=== PATIENT | male | born 1960 | race Two or more races ===

== ENCOUNTER 2021-04-18 11:56 | Inpatient (IN) | payer OTHER ==
[~2021-04-18] VITALS: Ht 175.3 cm; Wt 135.0 kg
[2021-04-18 12:51] LABS: GLUCOSE,POINT OF CARE 194 MG/DL (70-110)
[2021-04-18] MEDS ORDERED: SODIUM CHLORIDE 0.9% 1,000 ML IV ONE (14:30)
[2021-04-18 14:54] LABS: BASOPHILS % (AUTO) 0.4 % (0.0-2.0); EOSINOPHILS % (AUTO) 0 % (1.0-6.0); HEMATOCRIT 44.6 % (41-53); HEMOGLOBIN 15.2 g/dL (13.5-17.5); LYMPHOCYTES # (AUTO) 0.4 K/uL (1.0-4.8); LYMPHOCYTES % (AUTO) 6.2 % (22.0-44.0); MEAN CORPUSCULAR HEMOGLOBIN 33.3 pg (26.0-34.0); MEAN CORPUSCULAR HGB CONC 34.2 G/dL (31.0-37.0); MEAN CORPUSCULAR VOLUME 98 fL (80-100); MONOCYTES # (AUTO) 0.8 K/uL (0.1-1.0); MONOCYTES % (AUTO) 13.2 % (2.0-9.0); NEUTROPHILS # (AUTO) 4.8 K/uL (1.8-7.7); NEUTROPHILS % (AUTO) 80.2 % (40.0-70.0); PLATELET COUNT (AUTO) 75 K/uL (150-450); RED BLOOD CELL COUNT(AUTO) 4.57 MIL/uL (4.50-5.90); RED CELL DISTRIBUTION WIDTH 15.1 % (11.5-14.5)
[2021-04-18 15:02] LABS: APPEARANCE,URINE CLEAR (CLEAR); GLUCOSE, URINE (UA) NEGATIVE (NEGATIVE); KETONES,URINE >=80 mg/dL (NEGATIVE); LEUKOCYTE ESTERASE ,URINE SMALL (NEGATIVE); NITRATE,URINE POSITIVE (NEGATIVE); OCCULT BLOOD,URINE MODERATE (NEGATIVE); PROTEIN,URINE SEE CONFIRM (NEGATIVE)
[2021-04-18 15:06] LABS: AMPHET/METH SCREEN,URINE NEGATIVE (NEGATIVE); BARBITURATE SCREEN, URINE NEGATIVE (NEGATIVE); BENZODIAZEPINES SCREEN,URINE NEGATIVE (NEGATIVE); BILIRUBIN,URINE PRELIM. POSITIVE (NEGATIVE); CANNABINOID SCREEN,URINE NEGATIVE (NEGATIVE); COCAINE SCREEN,URINE NEGATIVE (NEGATIVE); METHADONE SCREEN, URINE NEGATIVE (NEGATIVE); OPIATE SCREEN,URINE NEGATIVE (NEGATIVE)
[2021-04-18 15:07] LABS: PHENCYCLIDINE SCREEN,URINE NEGATIVE (NEGATIVE)
[2021-04-18 15:07] LABS: ANION GAP 15 mmol/L (8-16); CALCIUM, TOTAL 9.4 mg/dL (8.8-10.5); CARBON DIOXIDE 28 mmol/L (22-29); CHLORIDE 96 mmol/L (98-107); CREATININE 1.06 mg/dL (0.60-1.30); GLOMERULAR FILTR. RATE CALC > 60 mL/min (>60); GLUCOSE,RANDOM 107 mg/dL (70-110); POTASSIUM 3.2 mmol/L (3.5-5.1); SODIUM SERUM 139 mmol/L (136-145); UREA NITROGEN, BLOOD 8 mg/dL (7-18)
[2021-04-18 15:10] LABS: INR 1.1 (0.9-1.1); PROTHROMBIN TIME 11.6 SEC (9.4-11.6)
[2021-04-18 15:14] LABS: COVID AG,FIA SOURCE NASOPHARYNGEAL
[2021-04-18 15:18] LABS: AMMONIA 19 umol/L (11-32)
[2021-04-18 15:19] LABS: TROPONIN I < 0.02 ng/mL (0.00-0.05)
[2021-04-18 15:30] LABS: ALANINE AMINOTRANSFERASE 37 U/L (12-78); ALBUMIN 3.9 g/dL (3.4-5.0); ALKALINE PHOSPHATASE 72 U/L (46-116); ASPARTATE AMINOTRANSFERASE 78 U/L (15-37); BILIRUBIN,TOTAL 1.5 mg/dL (0.1-1.0); CREATINE KINASE, TOTAL ONLY 161 U/L (39-308); TOTAL PROTEIN, SERUM 8.7 g/dL (6.4-8.2)
[2021-04-18 15:36] LABS: MAGNESIUM 1.9 mg/dL (1.80-2.40)
[2021-04-18 15:55] LABS: BACTERIA,URINE Few /HPF (None Seen); SQUAMOUS EPITHELIAL CELL,UR Rare /LPF (None Seen); WBC,URINE 0-2 /HPF (0-5)
[2021-04-18 15:56] LABS: HYALINE CASTS, URINE 0-2 /LPF (None Seen)
[2021-04-18 15:57] LABS: SULFOSALICYLIC ACID,URINE 3+ (Negative)
[2021-04-18] MEDS ORDERED: POTASSIUM CHLORIDE 20 MEQ ER TABLET PO ONE (17:15)
[2021-04-18] MEDS ORDERED: LORazepam 1 MG TABLET PO ONE (17:15)
[2021-04-18 17:41] VITALS: BP 144/90
[2021-04-18] MEDS ORDERED: MAGNESIUM SULFATE 2 GM/WATER 50 ML IV PRN (18:30)
[2021-04-18] MEDS ORDERED: ONDANSETRON HCL 4 MG/2 ML VIAL IVP PRN (18:30)
[2021-04-18] MEDS ORDERED: MAGNESIUM OXIDE 400 MG TABLET PO PRN (18:30)
[2021-04-18] MEDS ORDERED: MAGNESIUM HYDROXIDE SUSPENSION 30 ML UDCUP PO PRN (18:30)
[2021-04-18] MEDS ORDERED: MAGNESIUM SULFATE 4 GM/WATER 100 ML IV PRN (18:30)
[2021-04-18] MEDS ORDERED: POTASSIUM CHL 10 MEQ/WATER 50 ML IV PRN (18:30)
[2021-04-18] MEDS ORDERED: POTASSIUM CHLORIDE 20 MEQ ER TABLET PO PRN (18:30)
[2021-04-18] MEDS: SODIUM CHLORIDE 0.9% 1,000 ML IV SCH (18:50)
[2021-04-18 19:19] VITALS: BP 151/92
[2021-04-18 20:51] LABS: ALBUMIN 4.2 g/dL (3.4-5.0)
[2021-04-18] MEDS: ACETAMINOPHEN 325 MG TABLET PO PRN (22:47)
[2021-04-18 23:02] VITALS: BP 139/92
[2021-04-18] MEDS: HEPARIN SODIUM,PORCINE 5,000 UNITS/ML VIAL SQ SCH (23:35)
[2021-04-19 04:11] VITALS: BP_SYST 130
[2021-04-19] MEDS: SODIUM CHLORIDE 0.9% 1,000 ML IV SCH (04:56)
[2021-04-19 07:05] LABS: MAGNESIUM 1.8 mg/dL (1.80-2.40); POTASSIUM 3.7 mmol/L (3.5-5.1)
[2021-04-19 07:46] VITALS: BP 142/94
[2021-04-19] MEDS: MULTIVITAMINS WITH MINERALS, THERAPEUTIC TABLET PO SCH (08:42)
[2021-04-19] MEDS: FAMOTIDINE 20 MG TABLET PO SCH (08:42)
[2021-04-19] MEDS: HEPARIN SODIUM,PORCINE 5,000 UNITS/ML VIAL SQ SCH ×2 (08:43→15:34)
[2021-04-19 10:38] VITALS: BP 144/91
[2021-04-19 15:31] VITALS: BP 135/87
[2021-04-19 19:38] VITALS: BP 143/91
[2021-04-19] MEDS: ACETAMINOPHEN 325 MG TABLET PO PRN (21:08)
[2021-04-19 23:58] VITALS: BP 140/88
[2021-04-20 04:40] VITALS: BP 144/99
[2021-04-20] MEDS: HEPARIN SODIUM,PORCINE 5,000 UNITS/ML VIAL SQ SCH ×2 (07:57)
[2021-04-20 07:59] VITALS: BP 152/91
[2021-04-20] MEDS: ACETAMINOPHEN 325 MG TABLET PO PRN (08:02)
[2021-04-20] MEDS: MULTIVITAMINS WITH MINERALS, THERAPEUTIC TABLET PO SCH (08:02)
[2021-04-20] MEDS: FAMOTIDINE 20 MG TABLET PO SCH (08:02)
[2021-04-20 11:19] VITALS: BP 148/93
== END 2021-04-20 13:00 | disposition home or self-care (01) | DRG 641 ==
LOC: EMS 11:59 → 5S 17:07
PROVIDERS: ADMIT Internal Medicine; ATTEND Internal Medicine
DX: E86.0 Dehydration (principal); E44.0 Moderate protein-calorie malnutrition; F10.139 Alcohol abuse with withdrawal, unspecified; Z68.41 Body mass index [BMI] 40.0-44.9, adult; E66.01 Morbid (severe) obesity due to excess calories; E83.42 Hypomagnesemia; E87.6 Hypokalemia; I10 Essential (primary) hypertension; F32.9 Major depressive disorder, single episode, unspecified; Z20.822 Contact with and (suspected) exposure to COVID-19; Z59.0 Homelessness; Z86.73 Personal history of transient ischemic attack (TIA), and cerebral infarction without residual deficits; Z79.899 Other long term (current) drug therapy
CPT/HCPCS: 70450; 71045; 80053; 81001; 81002; 82040; 82140; 82550; 82962; 83735; 84132; 84484; 85025; 85610; 93005; 97116; 97161; 97530; 99285; G0480; J1644; J7030; 36415-L1; 36415-TC

== ENCOUNTER 2021-07-04 17:36 | Emergency (ER) | payer OTHER ==
[~2021-07-04] VITALS: Ht 170.2 cm; Wt 137.0 kg
[2021-07-04] MEDS ORDERED: IVERMECTIN 3 MG TABLET PO ONE (18:45)
[2021-07-04] MEDS ORDERED: PERMETHRIN 5% 60 GM CREAM TP ONE (18:45)
[2021-07-04] MEDS ORDERED: PERMETHRIN 1% 60 ML LOTION TP ONE (18:45)
[2021-07-04 22:01] LABS: COVID AG,FIA SOURCE NASOPHARYNGEAL
[2021-07-04 22:02] LABS: BASOPHILS % (AUTO) 1.2 % (0.0-2.0); EOSINOPHILS % (AUTO) 8.1 % (1.0-6.0); HEMATOCRIT 42.2 % (41-53); HEMOGLOBIN 14.6 g/dL (13.5-17.5); LYMPHOCYTES # (AUTO) 1.6 K/uL (1.0-4.8); MEAN CORPUSCULAR HEMOGLOBIN 34.4 pg (26.0-34.0); MEAN CORPUSCULAR HGB CONC 34.7 G/dL (31.0-37.0); MEAN CORPUSCULAR VOLUME 99 fL (80-100); MONOCYTES # (AUTO) 1.1 K/uL (0.1-1.0); MONOCYTES % (AUTO) 10.9 % (2.0-9.0); NEUTROPHILS # (AUTO) 6.7 K/uL (1.8-7.7); NEUTROPHILS % (AUTO) 64.8 % (40.0-70.0); PLATELET COUNT (AUTO) 144 K/uL (150-450); RED BLOOD CELL COUNT(AUTO) 4.26 MIL/uL (4.50-5.90)
[2021-07-04 22:10] LABS: CALCIUM, TOTAL 9.6 mg/dL (8.8-10.5); CREATININE 1.43 mg/dL (0.60-1.30); POTASSIUM 3.2 mmol/L (3.5-5.1)
[2021-07-04 22:16] LABS: ALBUMIN 3.9 g/dL (3.4-5.0); BILIRUBIN,TOTAL 1.2 mg/dL (0.1-1.0); TOTAL PROTEIN, SERUM 8.4 g/dL (6.4-8.2)
[2021-07-04 22:34] VITALS: BP 137/85
== END 2021-07-04 23:12 | disposition home or self-care (01) ==
LOC: EMS 17:39
DX: R53.1 Weakness (principal); B85.2 Pediculosis, unspecified; F10.129 Alcohol abuse with intoxication, unspecified; E87.6 Hypokalemia; K70.30 Alcoholic cirrhosis of liver without ascites; I10 Essential (primary) hypertension; F32.9 Major depressive disorder, single episode, unspecified; Z20.822 Contact with and (suspected) exposure to COVID-19
CPT/HCPCS: 36415; 80053; 85025; 87426; 99284; G0480